=== PATIENT | female | born 1995 | race Caucasian/White ===

== ENCOUNTER 2024-08-02 09:43 | Emergency (ER) | payer OTHER, SELFPAY ==
[2024-08-02 09:52] VITALS: BP 152/89
--- NOTE | 2024-08-02 10:16 | ED.GENMED ---
History of Present Illness
General
Chief Complaint: Problems
Time Seen by Provider: 08/02/24 09:56
History of Present Illness
History of Present Illness:
29-year-old female, G2, P1 currently estimated at 7 weeks gestational age presents to the emergency department for evaluation of severe abdominal pain that occurred last night but is since improved. She also reports loose stool into the morning for
the past 7 days. Lastly she is concerned violaceous discoloration of her cuticles on all digits. No fevers or chills, no vaginal bleeding or discharge
Review of Systems
Review of Systems
Allergies reviewed?: Yes
All Other Systems: ROS reviewed and negative except as documented in HPI and ROS
Phy Exam
Physical Exam
Physical Exam:
GEN: Well appearing, NAD, WDWN
Eyes: PERRLA, no scleral icterus
HENT: NCAT, oral mucosa moist
Lungs: CTAB, no wheezes, rales, rhonchi, normal chest wall excursion
Cardiac: RRR, no M/R/G, no peripheral edema. Radial pulses 2+ bilat
Abdomen: S, NT, ND, NABS, no masses or hepatosplenomegaly
Neuro: AO x 3
MSK: No gross deformity or ecchymosis. No edema. No digital clubbing
Skin: No rashes, petechiae. Violaceous discoloration of the cuticles of the fingers
Psych: Calm, cooperative, proper hygiene
Course
Orders/Labs/Results
Orders:
Orders
08/02/24 10:27
US W Transvaginal Urgent
Comment: confirm IUP/FHT
Reason For Exam: lower abd pain, 6 wk GA
08/02/24 10:37
Complete Blood Count/With Diff Urgent
Comprehensive Metabolic Panel Urgent
HCG, Beta Quantitative [Beta HCG Quantitative] Urgent
Is this a screen?: No
Urinalysis Reflex To Culture Urgent
Date Specimen was Collected: 08/02/24
Time Specimen was Collected: 10:33
Abnormal Lab Results
08/02/24
10:37
WBC 11.3 H 10^3/uL
(4.8-10.8)
RBC 3.86 L 10^6/uL
(4.20-5.40)
Hct 34.1 L %
(37.0-47.0)
MCH 31.1 H pg
(27.0-31.0)
Absolute Neuts (auto) 8.1 H 10^3/uL
(1.4-6.5)
Absolute Monos (auto) 0.9 H 10^3/uL
(0.1-0.6)
Lymphocytes % 20.2 L %
(20.5-51.1)
Creatinine 0.5 L mg/dL
(0.6-1.0)
08/02/24 10:37
08/02/24 10:37
Vital Signs
Initial and Last Documented VS:
Initial Vital Signs
Temp Pulse Resp BP Pulse Ox
98.7 F 96 16 152/89 98
08/02/24 09:52 08/02/24 09:52 08/02/24 09:52 08/02/24 09:52 08/02/24 09:52
Last Documented Vital Signs
Temp Pulse Resp BP Pulse Ox
99.6 F 99 14 117/77 93
08/02/24 13:03 08/02/24 13:03 08/02/24 13:03 08/02/24 13:03 08/02/24 13:03
Information
Weeks gestation: Weeks: (7)
Location: Location: ([facility])
MDM/Problems Addressed
MDM/Problems Addressed:
ultrasound reveals an intrauterine with good heart tones and no free fluid. Her labs are reassuring. Will send for outpatient stool culture given the persistent loose stool in the morning and high rates of community food
contamination/recalls recently, overall clinically well and reasonable for outpatient
*Critical Care Note
Total Time (30-74mins, 75-104mins- exclusive of procedures): Not Applicable
ED Attending Note
-
Portions of this chart may have been created with voice recognition software.� Occasional wrong word or��sound alike� substitutions may have occurred due to the inherent limitations of voice recognition software.
Discharge Plan
Departure
Patient Disposition: Home (Routine Discharge)
Date of Disposition: 08/02/24
Time of Disposition: 12:43
Patient with high blood pressure during this ER visit?: No
Discharge Problem:
Loose stools, Abdominal pain
Prescriptions:
No Action
prenat.vits,jose luis,jgi-qirp-beapn Tablet
1 tab PO DAILY
acetaminophen 325 mg Tablet
650 mg PO Q4HPRN PRN (Reason: mild pain) Qty: 0 0RF
ibuprofen 600 mg Tablet
600 mg PO Q6HPRN PRN (Reason: moderate pain/cramps) Qty: 0 0RF
Referrals:
Luh Ardon DO [Family Provider] -
Interventions
Interventions:
*Risk Screen - Suicide Last Done: 08/02/24 09:52
*General Assessment Last Done: 08/02/24 10:32
*Neglect/Abuse Screening Last Done: 08/02/24 09:52
ED- Fall Risk Assessment Last Done: 08/02/24 10:32
*ED COVID-19 Vaccine History Last Done: 08/02/24 10:32
*Nursing Disposition Last Done: 08/02/24 13:03
ED-Female Genitourinary Assessment Last Done: 08/02/24 10:32
Discharge Date and Time
Discharge Date/Time: 08/02/24 13:04
Print Language: GUINEAN
[2024-08-02 10:29] VITALS: BMI 23.7
[2024-08-02 10:31] VITALS: BP 115/82
[2024-08-02 10:46] LABS: % Basophils 0.1 % (0-2); % Eosinophils 0.3 % (0-6); % Immature Granulocytes 0.3 % (0-0.5); % Lymphocytes 20.2 % (20.5-51.1); % Monocytes 7.6 % (1.7-9.3); % Neutrophils 71.5 % (42.2-75.2); Absolute Lymphocytes 2.3 10^3/uL (1.2-3.4); Absolute Monocytes 0.9 10^3/uL (0.1-0.6); Absolute Neutrophils 8.1 10^3/uL (1.4-6.5); Hematocrit 34.1 % (37.0-47.0); Mean Corp Hgb Conc. 35.2 g/dL (33.0-37.0); Mean Corpuscular Hgb 31.1 pg (27.0-31.0); Mean Corpuscular Volume 88.3 fL (81.0-99.0); Mean Platelet Volume 10.2 fL (7.4-10.4); Nucleated Red Blood Cells % 0 %; Platelet Count 307 10^3/uL (130-400); Red Blood Cell Count 3.86 10^6/uL (4.20-5.40); Red Cell Dist. Width 12.1 % (11.5-14.5); White Blood Cell Count 11.3 10^3/uL (4.8-10.8)
[2024-08-02 10:50] LABS: Urine Albumin Negative (Neg - Trace); Urine Bilirubin Negative (Negative); Urine Character Clear (Clear); Urine Color Yellow; Urine Glucose Negative (Negative); Urine Ketone Negative (Negative); Urine Leukocyte Negative (Negative); Urine Nitrite Negative (Negative); Urine Occult Blood Negative (Negative); Urine Urobilinogen Negative (Neg - 1+)
[2024-08-02 10:56] LABS: ALT (SGPT) 14 U/L (0-35); AST (SGOT) 18 U/L (14-36); Albumin 4.6 g/dl (3.5-5.0); Alkaline Phosphatase 56 U/L (38-126); Blood Urea Nitrogen 8 mg/dl (7-17); Calcium 9.8 mg/dl (8.4-10.2); Carbon Dioxide 26 mmol/L (22-30); Chloride 100 mmol/L (98-107); Estimated Creatinine Clearance 107 ml/min; Glucose 96 mg/dl (70-99); Potassium 4.8 mmol/L (3.5-5.1); Sodium 138 mmol/L (135-145); Total Bilirubin 0.3 mg/dl (0.2-1.3); Total Protein 7.4 g/dl (6.3-8.2); eGFR > 60.00
[2024-08-02 11:00] VITALS: BP 110/84
[2024-08-02 12:53] VITALS: BP 117/77
[2024-08-02 13:03] VITALS: BP 117/77
== END 2024-08-02 13:04 | disposition home or self-care (01) ==
LOC: EMR 09:43
PROVIDERS: Physician Assistant; EMERGENCY PHYSICIAN Emergency Medicine; FAMILY PHYSICIAN Family Medicine
DX: O26.891 Other specified pregnancy related conditions, first trimester (principal); R19.7 Diarrhea, unspecified; R10.9 Unspecified abdominal pain; Z3A.08 8 weeks gestation of pregnancy
CPT/HCPCS: 99284; 76801; 76817; 80053; 81003; 84702; 85025

== ENCOUNTER 2025-03-25 05:27 | Inpatient (IN) | payer OTHER, SELFPAY ==
[2025-03-25 05:45] VITALS: BP 116/73; BMI 30.2
[2025-03-25 06:18] LABS: % Basophils 0.2 % (0-2); % Eosinophils 0.2 % (0-6); % Immature Granulocytes 0.6 % (0-0.5); % Lymphocytes 17.5 % (20.5-51.1); % Monocytes 8.1 % (1.7-9.3); % Neutrophils 73.4 % (42.2-75.2); Absolute Immature Granulocytes 0.1 10^3/uL (0-0.05); Absolute Lymphocytes 2.1 10^3/uL (1.2-3.4); Absolute Neutrophils 8.7 10^3/uL (1.4-6.5); Hematocrit 34.7 % (37.0-47.0); Mean Corp Hgb Conc. 34.6 g/dL (33.0-37.0); Mean Corpuscular Hgb 31.9 pg (27.0-31.0); Mean Corpuscular Volume 92.3 fL (81.0-99.0); Mean Platelet Volume 11.7 fL (7.4-10.4); Nucleated Red Blood Cells % 0 %; Platelet Count 187 10^3/uL (130-400); Red Blood Cell Count 3.76 10^6/uL (4.20-5.40); White Blood Cell Count 11.8 10^3/uL (4.8-10.8)
[2025-03-25] MEDS: SUBLIMAZE 100 MCG EPIDURAL (07:40)
[2025-03-25] MEDS: FENTANYL/BUPIVACAINE 100 EPIDURAL (07:40)
[2025-03-25] MEDS: LR 1000 IV (07:51)
[2025-03-26 04:31] LABS: Hematocrit 33.5 % (37.0-47.0); Hemoglobin 11.4 g/dL (12.0-16.0)
[2025-03-26] MEDS: SENOKOT-S 1 TABLET PO (08:42)
[2025-03-26] MEDS: PRENATAL PLUS 1 TABLET PO (08:42)
[2025-03-27 13:07] LABS: Syphilis/T. pallidum Ab Reflex Negative (Negative)
== END 2025-03-26 13:55 | disposition home or self-care (01) | DRG 807 ==
LOC: LDRP 05:27
PROVIDERS: ADMITTING PHYSICIAN Obstetrics & Gynecology; FAMILY PHYSICIAN Family Medicine
PROC: 10E0XZZ Delivery of Products of Conception, External Approach (ICD-10-PCS; 2025-03-25)
PROC: 0KQM0ZZ Repair Perineum Muscle, Open Approach (ICD-10-PCS; 2025-03-25)
DX: O48.0 Post-term pregnancy (principal); Z37.0 Single live birth; Z3A.40 40 weeks gestation of pregnancy; O70.1 Second degree perineal laceration during delivery
CPT/HCPCS: 36415; 85014; 85018; 85025; 86780; 86850; 86900; 86901